=== PATIENT | male | born 1970 | race Caucasian/White ===

== ENCOUNTER 2019-04-13 12:30 | Emergency (ER) | payer BC ==
[2019-04-13 13:25] VITALS: BP 146/89
--- NOTE | 2019-04-13 14:06 | UC ---
FLU HPI - HPI Summary HPI Summary: YESTERDAY DEVELOPED FEVER 101.3, CHILLS, BODY ACHES, MILLER, FATIGUE, COUGH AND CONGESTION. SON SWABBED POSITIVE FOR FLU A THIS MORNING AT [employer] [facility]. UP TO DATE FLU SHOT. - History of Current Complaint Chief Complaint: UCGeneralIllness Stated Complaint: COUGH, ACHES, FEVER, AND CHILLS Time Seen by Provider: 04/13/19 13:45 Hx Obtained From: Patient Onset/Duration: Gradual Onset, Lasting Days - 1 DAY, Still Present Severity Currently: Mild Severity Initially: Mild Pain Intensity: 1 Pain Scale Used: 0-10 Numeric Associated Signs & Symptoms: Positive: Fever, Myalgia, Cough, Sore Throat, Nasal Congestion - Allergy/Home Medications Allergies/Adverse Reactions: Allergies Allergy/AdvReac Type Severity Reaction Status Date / Time No Known Allergies Allergy Verified 04/13/19 13:20 Home Medications: Home Medications Cholecalciferol TAB* [Vitamin D TAB*] 2,000 units PO DAILY 04/13/19 [History Confirmed 04/13/19] Lisinopril TAB* [Prinivil TAB 10 MG*] 40 mg PO DAILY 04/13/19 [History Confirmed 04/13/19] Omeprazole 20 mg PO DAILY 04/13/19 [History Confirmed 04/13/19] Zinc 50 mg PO DAILY 04/13/19 [History Confirmed 04/13/19] metFORMIN* [Glucophage 1000 MG TAB *] 1,000 mg PO BID 04/13/19 [History Confirmed 04/13/19] PMH/Surg Hx/FS Hx/Imm Hx Endocrine History: Diabetes Cardiovascular History: Hypertension - Surgical History Surgical History: Yes Surgery Procedure, Year, and Place: R knee x2 - Family History Known Family History: Positive: Non-Contributory - Social History Alcohol Use: None Substance Use Type: None Smoking Status (MU): Never Smoked Tobacco Review of Systems All Other Systems Reviewed And Are Negative: Yes Constitutional: Positive: Fever, Chills, Fatigue ENT: Positive: Sore Throat, Nasal Discharge Respiratory: Positive: Cough Cardiovascular: Positive: Negative Gastrointestinal: Positive: Negative Musculoskeletal: Positive: Myalgia Neurological: Positive: Headache Physical Exam Triage Information Reviewed: Yes Appearance: Well-Appearing, No Pain Distress, Well-Nourished Vital Signs: Initial Vital Signs Temp 99.7 F 12/11/19 13:21 Pulse 113 04/13/19 13:21 Resp 16 04/13/19 13:21 BP 146/89 04/13/19 13:21 Pulse Ox 98 04/13/19 13:21 Laboratory Tests 04/13/19 14:04 Influenza A (Rapid) Positive A Vital Signs Reviewed: Yes Eyes: Positive: Conjunctiva Clear ENT: Positive: Hearing grossly normal, Pharynx normal, TMs normal Neck: Positive: Supple, Nontender, No Lymphadenopathy Respiratory Exam: Normal Cardiovascular: Positive: Tachycardia Abdomen Description: Positive: Soft Musculoskeletal: Positive: No Edema Neurological: Positive: Alert Psychological: Positive: Age Appropriate Behavior Skin: Negative: Rashes Flu Course/Dx - Differential Dx/Diagnosis Provider Diagnosis: Influenza A Discharge ED - Sign-Out/Discharge Documenting (check all that apply): Patient Departure All imaging exams completed and their final reports reviewed: No Studies - Discharge Plan Condition: Stable Disposition: HOME Prescriptions: Oseltamivir CAP* [Tamiflu CAP*] 75 mg PO BID #10 cap Patient Education Materials: Influenza (ED) Forms: *Work Release Referrals: [facility] [Outside] - If Needed Additional Instructions: SWAB POSITIVE FOR INFLUENZA A. TAMIFLU TWICE DAILY FOR 5 DAYS. OTC MEDS NEEDED FOR FEVER, BODY ACHES. STAY WELL HYDRATED AND RESTED. SEEK FOLLOW-UP IF YOU ARE NOT IMPROVING EXPECTED. CALL THE NUMBER BELOW FOR ASSISTANCE IN ESTABLISHING WITH A PCP An additional resource available to assist in finding the appropriate physician for your health care needs is [facility] ([facility]). You may contact them by calling [phone]. - Billing Disposition and Condition Condition: STABLE Disposition: Home
[2019-04-13 14:09] LABS: Influenza A Molecular POSITIVE (Negative)
== END 2019-04-13 14:36 | disposition home or self-care (01) ==
LOC: UCEAST 12:30 → EDSEX 12:30 → UCEAST 14:36
DX: J11.1 Influenza due to unidentified influenza virus with other respiratory manifestations (principal); E11.9 Type 2 diabetes mellitus without complications; I10 Essential (primary) hypertension; Z79.84 Long term (current) use of oral hypoglycemic drugs; Z79.899 Other long term (current) drug therapy
CPT/HCPCS: 99212; G0463